=== PATIENT | male | born 1980 | race Caucasian/White ===

== ENCOUNTER 2016-12-01 22:46 | Emergency (ER) | payer OTHER ==
[~2016-12-01] VITALS: Ht 170.2 cm; Wt 77.3 kg
[2016-12-01] MEDS ORDERED: CHLO125TA PO (23:06)
[2016-12-01] MEDS ORDERED: LISI10TA4 PO (23:06)
[2016-12-02] MEDS ORDERED: LISINOPRIL 10 MG TAB PO ONE
[2016-12-02] MEDS ORDERED: IBUPROFEN 800 MG TAB PO ONE
[2016-12-02] MEDS ORDERED: METHOCARBAMOL 500 MG TAB PO ONE
[2016-12-02] MEDS ORDERED: NORCO 5/325MG TABLET (BULK FOR ED) PO ONE
[2016-12-02] MEDS ORDERED: NORCO, ANEXSIA 5/325MG TABLET (HYDROcodone/ACETAMINOPHEN) PO ONE
[2016-12-02] MEDS ORDERED: LISI10TA4 PO (00:06)
[2016-12-02] MEDS ORDERED: ROBA500T PO (00:06)
[2016-12-02] MEDS ORDERED: CHLO125TA PO (00:06)
[2016-12-02] MEDS ORDERED: IBUP-1022 PO (00:06)
[2016-12-02 00:17] VITALS: BP 151/100
== END 2016-12-02 00:22 | disposition home or self-care (01) ==
LOC: M ED 22:46
DX: M54.42 Lumbago with sciatica, left side (principal); I10 Essential (primary) hypertension; F17.210 Nicotine dependence, cigarettes, uncomplicated; Z79.899 Other long term (current) drug therapy

== ENCOUNTER 2017-02-23 16:00 | Emergency (ER) | payer OTHER | END 2017-02-23 17:53 | disposition home or self-care (01) | LOC: M ED 16:00 | DX: S61.232A Puncture wound without foreign body of right middle finger without damage to nail, initial encounter (principal); L03.011 Cellulitis of right finger; W60.XXXA Contact with nonvenomous plant thorns and spines and sharp leaves, initial encounter; Y92.099 Unspecified place in other non-institutional residence as the place of occurrence of the external cause; Y93.9 Activity, unspecified; F17.200 Nicotine dependence, unspecified, uncomplicated; Z79.899 Other long term (current) drug therapy | CPT/HCPCS: 73140 ==

== ENCOUNTER 2017-03-23 21:35 | Emergency (ER) | payer OTHER | END 2017-03-24 00:51 | disposition left against medical advice (07) | LOC: M ED 21:35 | DX: S69.90XA Unspecified injury of unspecified wrist, hand and finger(s), initial encounter (principal); Z53.21 Procedure and treatment not carried out due to patient leaving prior to being seen by health care provider ==